=== PATIENT | male | born 1965 | race Caucasian/White ===

== ENCOUNTER 2024-02-17 11:28 | Emergency (ER) | payer OTHER, SELFPAY ==
[2024-02-17 11:35] VITALS: BP 184/110; PULSE 85; TEMP 36.6; O2SAT 97; BMI 31.0
--- NOTE | 2024-02-17 12:02 | ED.DENTAL1 ---
HPI - Dental/Oral General Chief complaint: Dental/Oral Stated complaint: TOOTHACHE Time Seen by Provider: 02/17/24 11:44 Source: patient Mode of arrival: walk-in History of Present Illness HPI Narrative: Patient is coming to the ER complaining of dental pain mostly the right lower, patient that he has been having dental issues for a while and has not been able to get into the dentist due to insurance problems, patient is denying any other complaint he mentioned that he has not been able to eat at least for few days because of the dental pain He has been drinking water and eating soft food Related Data Previous Rx's ?Medication ?Instructions ?Recorded clindamycin HCl 300 mg capsule 300 mg PO Q8H 10 days #30 caps 02/17/24 (Cleocin HCl) diclofenac sodium 75 mg 75 mg PO BID PRN pain #14 tabs 02/17/24 tablet,delayed release Allergies Allergy/AdvReac Type Severity Reaction Status Date / Time Penicillins AdvReac Severe Unknown Verified 02/17/24 11:38 Review of Systems ROS Status of ROS 10 or more systems reviewed and unremarkable except as noted in history and below PFSH PFSH Social History Little interest or pleasure in doing things: not at all Feeling down, depressed, or hopeless: not at all Exam Narrative Exam Narrative: Nurses notes and vital signs reviewed and patient is not hypoxic. Dental exam showed that the patient had multiple decayed tooth including the tooth #30 and 29 in addition to the tooth #19 and 20 there is some red gum with no airway compromise or any significant swelling General: Well-appearing and in no apparent distress. Skin: Warm, dry, no pallor noted. No rash. Head: Normocephalic, atraumatic. Neck: Supple, non-tender. Eye: Pupils are equal, round and EOMI. No scleral icterus. Ears, Nose, Mouth, and Throat: TM are clear, no nasal mucosal hypertrophy. Oral mucosa is moist, no posterior oropharynx erythema, uvula is mid-line Cardiovascular: Regular Rate and Rhythm without murmur, gallop or rub. Respiratory: No accessory muscle use or respiratory distress. Lungs are clear to auscultation, no wheezing, rales or rhonchi Chest Wall: no tenderness Back: No midline thoracic or lumbar vertebral tenderness. No CVA tenderness Musculoskeletal: normal ROM, no calf or popliteal tenderness, no lower extremity edema/swelling GI: Abdomen is soft, non-distended. Normal bowel sounds. No masses appreciated. No tenderness to palpation. No rebound, guarding, or rigidity noted. Neurological: A&O x4. No cranial nerve dysfunction observed. No truncal ataxia. Moves all extremities. Sensation intact. Psychiatric: Cooperative and interactive. Normal mood and affect. Constitutional Vital Signs, click to edit/add: Last Vital Signs Temp 97.9 F 02/17/24 11:35 Pulse 85 02/17/24 11:35 Resp 18 02/17/24 11:35 BP 184/110 H 02/17/24 11:35 Pulse Ox 97 02/17/24 11:35 Course Vital Signs Vital signs: Vital Signs Temperature 97.9 F 02/17/24 11:35 Pulse Rate 85 02/17/24 11:35 Respiratory Rate 18 02/17/24 11:35 Blood Pressure 184/110 H 02/17/24 11:35 Pulse Oximetry 97 02/17/24 11:35 Temperature 97.9 F 02/17/24 11:35 Pulse Rate 85 02/17/24 11:35 Respiratory Rate 18 02/17/24 11:35 Blood Pressure 184/110 H 02/17/24 11:35 Pulse Oximetry 97 02/17/24 11:35 MDM - Dental/Oral MDM Narrative Medical decision making narrative: The patient presented to us with a dental pain mostly secondary to dental infection he was started on clindamycin in addition supportive care with family Patient referred to the dentist as outpatient The patient is to follow up with primary care physician in next 2-3 days or to return to the emergency department should any of the signs or symptoms worsen or new symptoms develop. The patient agrees with the following Diagnosis and Treatment plan and the patient will be discharged home. Discharge Plan Discharge Chief Complaint: Dental/Oral Clinical Impression: Dental caries, Dental abscess Patient Disposition: Home, Self-Care Time of Disposition Decision: 12:05 Condition: Good Prescriptions / Home Meds: New clindamycin HCl [Cleocin HCl] 300 mg capsule 300 mg PO Q8H 10 Days Qty: 30 0RF diclofenac sodium 75 mg tablet,delayed release (DR/EC) 75 mg PO BID PRN (Reason: pain) Qty: 14 0RF Print Language: [place] Instructions: Dental Abscess (ED)
[2024-02-17] MEDS: BENZOCAINE 30 ML, lidocaine HCL 15 ML MM (12:14)
[2024-02-17] MEDS: CLINDAMYCIN HCL 150 MG CAPSULE 300 MG PO (12:14)
[2024-02-17] MEDS: KETOROLAC TROMETHAMINE 60 MG/2 ML VIAL IM (12:14)
== END 2024-02-17 12:23 | disposition home or self-care (01) ==
LOC: ER 12:55
PROVIDERS: Emergency Provider Emergency Medicine
DX: K02.9 Dental caries, unspecified (principal); K04.7 Periapical abscess without sinus
CPT/HCPCS: 96372; 99284; J1885

== ENCOUNTER 2024-02-17 21:21 | Emergency (ER) | payer OTHER, SELFPAY ==
[2024-02-17 21:27] VITALS: BP 175/109; PULSE 82; TEMP 37; O2SAT 97; BMI 31.0
--- OUTSIDE RECORDS SUMMARY | 2024-02-17 21:28 | XMS_ITS | CCD ---
Author Organization [facility] Care Team Providers Care Door Liner Name Role Phone TY CONLEY Attending Unavailable MISC, DOCTOR Primary Care Unavailable TY CONLEY Consulting Unavailable TY CONLEY Admitting Unavailable SARA BRIGHT Consulting Unavailable LEONOR MCNEIL Consulting Unavailable Steffany Flores MD Primary Care Provider URVASHI CLAYTON Referring Unavailable STEFFANY FLORES Primary Care Unavailable URVASHI CLAYTON Referring Unavailable STEFFANY FLORES Primary Care Unavailable RAMONITA VALLES Admitting Unavailable RAMONITA VALLES Attending Unavailable STEFFANY FLORES Primary Care Unavailable Allergies Allergy Classification Reported Allergen(s) Allergy Type Date of Onset Reaction(s) Facility (1 source) Penicillin Drug Allergy 1 [facility] (1 source) Penicillins Propensity to adverse reactions to drug 8 Other (See Comments) [facility] ([facility] source) Sulfonamides (Antibiotic) Propensity to adverse reactions to drug 8 Other (See Comments) [facility] Medications Current Medications Medication Drug Class(es) Dates Sig (Normalized) Sig (Original) calcium chloride 0.0014 meq/ml / potassium chloride 0.004 meq/ml / sodium chloride 0.103 meq/ml / sodium lactate 0.028 meq/ml injectable solution (2 sources) Start: 07-19-2023 lactated ringers IV soln infusion ibuprofen 800 mg oral tablet (1 source) Nonsteroidal Anti-inflammatory Drug Start: 07-05-2022 take 1 tablet by mouth three times daily ibuprofen (ADVIL;MOTRIN) 800 MG tablet Take 1 tablet by mouth 3 times daily 0 07/05/2022 Active Completed/Discontinued Medications Medication Drug Class(es) Dates Sig (Normalized) Sig (Original) naproxen 500 mg oral tablet (2 sources) Nonsteroidal Anti-inflammatory Drug Start: 01-22-2023 End: 04-24-2023 take 1 tablet by mouth once daily at mealtime naproxen (NAPROSYN) 500 MG tablet take 1 tablet by mouth every morning and evening with meals 0 01/22/2023 04/24/2023 Discontinued (Therapy completed) Start: 01-22-2023 End: 04-24-2023 take 1 tablet by mouth twice daily at mealtime naproxen (NAPROSYN) 500 MG tablet Take 1 tablet by mouth 2 times daily (with meals) 0 01/22/2023 04/24/2023 Discontinued (Therapy completed) traMADol hydrochloride 50 mg oral tablet (1 source) Opioid Agonist Start: 01-22-2023 End: 04-24-2023 take 1 tablet by mouth every six hours as needed for pain traMADol (ULTRAM) 50 MG tablet take 1 tablet by mouth every 6 hours NEEDED FOR PAIN up to 3 days 0 01/22/2023 04/24/2023 Discontinued (Therapy completed) Problems Active Problems Problem Classification Problem Date Documented Da te Episodic/Chronic Other non-traumatic joint disorders (4 sources) Pain in left knee; Translations: [PAIN IN LEFT KNEE] Onset: 06-14-2020 Episodic Other screening for suspected conditions (not mental disorders or infectious disease) (2 sources) Patient encounter status; Translations: [Encounter for screening for malignant neoplasm of colon] Onset: 07-19-2023 07-19-2023 Episodic Sprains and strains (1 source) Sprain of ligaments of lumbar spine, initial encounter; Translations: [SPRAIN LIGAMENTS LUMBAR SPN INITIAL] Onset: 06-16-2020 Episodic Past or Other Problems Problem Classification Problem Date Documented Da te Episodic/Chronic Gastrointestinal hemorrhage (2 sources) Rectal hemorrhage; Translations: [Hemorrhage of anus and rectum] Onset: 04-12-2023 07-19-2023 Episodic Other gastrointestinal disorders (1 source) Diarrhea, unspecified; Translations: [Diarrhea, unspecified] Onset: 04-13-2023 Episodic Results Test Name Value Interpretation Reference Range Facility No Panel Informationon 07-19 No dictation [facility] Surgical Pathology Reporton 07-19-2023 Surgical Pathology Report (NOTE) Path Number: [id number] -- Diagnosis -- A. Duodenum, biopsy: -Normal small bowel mucosa. B. Stomach, antral biopsy: -Mild chronic inflammation. C. Ascending colon, polyp, biopsy: -Tubular adenoma. D. Transverse colon, polyp, biopsy: -Tubular adenoma. E. Descending colon, polyp, biopsy: -Tubular adenoma. F. Rectum, polyp, biopsy: -Tubular adenoma. Estevan Quach M.D. Electronically Signed Out rdd/07/23/2023 Clinical Information Pre-Op Diagnosis: SCREENING FOR COLON CANCER, RECTAL BLEEDING Operative Findings: DUODENAL BULB BIOPSIES; GASTRIC ANTRUM BIOPSIES; ASCENDING COLON POLYP; TRANSVERSE COLON POLYP; DESCENDING COLON POLYP; RECTAL POLYP Operation Performed: COLONOSCOPY POLYPECTOMY SNARE/COLD BIOPSY AND CLIP X 3; EGD BIOPSY mj Source of Specimen A: DUODENAL BX B: ANTRAL BX C: ASCENDING COLON POLYP D: TRANSVERSE COLON POLYP E: DESCENDING COLON POLYP F: RECTAL POLYP Gross Description A. NICOLE WONG, DUODENAL BULB BIOPSIES Received in formalin is one rawls-white tissue fragment, 0.2 x 0.1 x 0.1 cm. Entirely 1cs. B. NICOLE WONG, GASTRIC ANTRUM BIOPSIES Received in formalin are two rawls-white tissue fragments from 0.1 to 0.2 cm and are 0.3 x 0.1 x 0.1 cm in aggregate. Entirely 1cs. C. NICOLE WONG, ASCENDING COLON POLYP Received in formalin are two rawls-white tissue fragments from 0.2 to 0.6 cm and are 0.8 x 0.5 x 0.2 cm in aggregate. Entirely 1cs. D. NICOLE WONG TRANSVERSE COLON POLYP Received in formalin is one rawls-white tissue fragment, 0.1 x 0.1 x 0.1 cm. Entirely 1cs. E. NICOLE WONG DESCENDING COLON POLYP Received in formalin are six rawls-white tissue fragments from 0.2 to 0.6 cm and are 0.9 x 0.5 x 0.2 cm in aggregate. Entirely 1cs. F. NICOLE WONG RECTAL POLYP Received in formalin are four rawls-white tissue fragments from 0.5 to 0.9 cm and are 1.7 x 0.8 x 0.4 cm in aggregate. Entirely 1cs. jj tm Estevan Quach M.D./mj:07/20/2023 Microscopic Description A. Small bowel mucosa shows normal architecture without active inflammation. There is no villous blunting or crypt hyperplasia to suggest sprue. Intraepithelial lymphocytes are not increased. There are no parasite forms. Lamina propria shows normal lymphocytes and plasma cells. There is no atypia or malignancy. B. Architecture is intact and there is no intestinal metaplasia and no dysplasia. There is no histologic evidence for Helicobacter. C-F. Microscopic examination performed. Processing Lab: [address] [id number] Interpretation Performed at [address] [id number] SURGICAL PATHOLOGY CONSULTATION Patient Name: NICOLE WONG [facility] Rec: [id number] [facility] ANATOMIC PATHOLOGY [address] [place] [id number] Normal [facility] Celiac Disease Panelon 04-19 Gliadin Deam Pep IgG <0.4 Normal <7.0 [facility] Comment on above: Result Comment: CELIAC INTERPRETATION <7.0 Negative 7.0-10.0 Equivocal >10.0 Positive units: U/mL Performed By: #### C ELP #### [address] [id number] Graphotype Operator: Emmanuel Wan MD Gliadin Deam Pep IgA 3.0 U/mL Normal <7.0 [facility] Comment on above: Result Comment: CELIAC INTERPRETATION <7.0 Negative 7.0-10.0 Equivocal >10.0 Positive units: U/mL Performed By: #### C ELP #### [address] [id number] Graphotype Operator: Emmanuel Wan MD Tiss Transglutam IgA 1.0 U/mL Normal <7.0 [facility] Comment on above: Result Comment: CELIAC INTERPRETATION <7.0 Negative 7.0-10.0 Equivocal >10.0 Positive units: U/mL Performed By: #### C ELP #### [address] [id number] Graphotype Operator: Emmanuel Wan MD Calprotectin, Fecalon 2022 Calprotectin, Fecal <5 Normal <=49 [facility] Comment on above: Result Comment: (NOT E) REFERENCE INTERVAL: Calprotectin, Fecal by Immunoassay Less than 50 ug/g.........Normal 50-120 ug/g...............Borderline elevated, test should be re-evaluated in 4-6 weeks. 121 ug/g or greater.......Elevated Performed By: [facility] [address] [id number] Physician Practice Manager: Nima Lemus MD, PhD CLIA Number: [id number] Performed By: #### S TLPCR, GCAG #### [facility] [address] [place] [address] Graphotype Operator: Emmanuel Wan MD [facility] [address] [facility] [place] [address] Graphotype Operator: Inderjit Panda MD #### ACALPF #### [address] [address] Graphotype Operator: Jacinto Szymanski MD Fecal Panc Elastaseon 2022 Pancreatic Elastase >800 Normal >=100 [facility] Comment on above: Result Comment: (NOT E) REFERENCE INTERVAL: Pancreatic Elastase Fecal by Immunoassay Less than 100 ug/g............Severe insufficiency 100 - 199 ug/g................Moderate insufficiency 200 ug/g or greater...........Normal INTERPRETIVE INFORMATION: Pancreatic Elastase Fecal by Immunoassay Reference intervals do not apply for infants less than one month old. Performed By: [facility] [address] [place] [address] Physician Practice Manager: Nima Lemus MD, PhD CLIA Number: [id number] Performed By: #### A PEF #### [facility] [address] [place] [address] Graphotype Operator: Jacinto Szymanski MD Giardia/Cryptosp Agon 2022 Cryptosporidium Ag Negative Normal NEG [facility] Comment on above: Result Comment: Cryp tosporidium Antigen Assay Performed By: #### S TLPCR, GCAG #### [facility] [address] [place] [address] Graphotype Operator: Emmanuel Wan MD [facility] [address] [place] [address] [address] [place], [place] [id number] Graphotype Operator: Inderjit Panda MD #### ACALPF #### [facility] [address] [place] [address] Graphotype Operator: Jacinto Szymanski MD O+P,Giardia Ag Negative Normal NEG [facility] Comment on above: Result Comment: Giar roly Antigen Assay Performed By: #### S TLPCR, GCAG #### [facility] [place] [address] Graphotype Operator: Emmanuel Wan MD [address] [place] [id number] Graphotype Operator: Inderjit Panda MD #### ACALPF #### [facility] [address] [place] [address] Graphotype Operator: Jacinto Szymanski MD Stool PCR [facility] 04-14-20 Campylobacter sp PCR NEGATIVE: No Campylobacter spp. (jejuni or coli) DNA Detected Normal CAMNEG [facility] Comment on above: Performed By: #### S TLPCR, GCAG #### [facility] [address] [place] [address] Graphotype Operator: Emmanuel Wan MD [facility] [address] [place] [address] [address] [place], [place] [id number] Graphotype Operator: Inderjit Panda MD #### ACALPF #### [facility] [address] [place] [address] Graphotype Operator: Jacinto Szymanski MD E coli enterotox PCR NEGATIVE: No Enterotoxigenic E. coli (ETEC) Heat-labile and heat-stable (LT/ST) Normal EECNEG [facility] Comment on above: Result Comment: DNA Detected Performed By: #### S TLPCR, GCAG #### [address] [address] Graphotype Operator: Emmanuel Wan MD [facility] [address] [place] [address] [place] [address] Graphotype Operator: Inderjit Panda MD #### ACALPF #### [facility] [address] [place] [address] Graphotype Operator: Jacinto Szymanski MD Plesiomonas sp PCR Negative [facility] Comment on above: Performed By: #### S TLPCR, GCAG #### [address] [address] Graphotype Operator: Emmanuel Wan MD [facility] [address] [place] [address] [place], [place] [id number] Graphotype Operator: Inderjit Panda MD #### ACALPF #### [facility] [address] [place] [address] Graphotype Operator: Jacinto Szymanski MD Salmonella sp PCR Negative [facility] Comment on above: Performed By: #### S TLPCR, GCAG #### [address] [address] Graphotype Operator: Emmanuel Wan MD [facility] [address] [place] [address] [place] [address] Graphotype Operator: Inderjit Panda MD #### ACALPF #### [facility] [address] [place] [address] Graphotype Operator: Jacinto Szymanski MD Shigatoxin gene PCR Negative Normal [facility] Comment on above: Performed By: #### S TLPCR, GCAG #### [address] [address] Graphotype Operator: Emmanuel Wan MD [facility] [address] [place] [address] [address] [place], [place] [id number] Graphotype Operator: Inderjit Panda MD #### ACALPF #### [facility] [address] [place] [address] Graphotype Operator: Jacinto Szymanski MD Shigella sp PCR Negative Normal [facility] Comment on above: Performed By: #### S TLPCR, GCAG #### [address] [address] Graphotype Operator: Emmanuel Wan MD [facility] [address] [place] [address] [address]. [place], [place] [id number] Graphotype Operator: Inderjit Panda MD #### ACALPF #### [facility] [address] [place], [place] [id number] Graphotype Operator: Jacinto Szymanski MD Vibrio sp PCR NEGATIVE: No Vibrio (V. vulnificus, V, parahaemolyticus and V. cholerae) DNA Normal [facility] Comment on above: Result Comment: Dete cted Performed By: #### S TLPCR, GCAG #### [address] [address] Graphotype Operator: Emmanuel Wan MD [facility] [address] [place] [address] Dr. [place], [place] [id number] Graphotype Operator: Inderjit Panda MD #### ACALPF #### [facility] [address] [place], [place] [id number] Graphotype Operator: Jacinto Szymanski MD Yersinia gene PCR Negative Normal YERNEG [facility] Comment on above: Performed By: #### S TLPCR, GCAG #### [facility] [address] [place] [address] Graphotype Operator: Emmanuel Wan MD [facility] [address] [place] [address] [address]. [place], [place] [id number] Graphotype Operator: Inderjit Panda MD #### ACALPF #### [facility] [address] [place] [address] Graphotype Operator: Jacinto Szymanski MD Celiac Disease Panelon 04-13 IgA [Mass/Vol] 386 mg/dL Normal 70-400 [facility] Comment on above: Performed By: #### C ELP #### [facility] [address] [place], [place] [id number] Graphotype Operator: Emmanuel Wan MD Giardia/Cryptosp Agon 2022 Source .FECES [facility] Comment on above: Performed By: #### S TLPCR, GCAG #### [facility] [address] [place] [address] Graphotype Operator: Emmanuel Wan MD [facility] [address] [place] [address] Graphotype Operator: Inderjit Panda MD #### ACALPF #### [facility] [address] [place] [address] Graphotype Operator: Jacinto Szymanski MD Specimen Rejectionon 023 Reason for rejection Unable to perform testing: Formed stool is not consistent with suspected Normal [facility] Comment on above: Result Comment: diag nosis. Performed By: #### R EJEC #### [facility] [address] [place] [address] Graphotype Operator: Inderjit Panda MD Source of sample .FECES Normal [facility] Comment on above: Performed By: #### R EJEC #### [facility] [address] [place] [address] Graphotype Operator: Inderjit Panda MD Test ordered [id number] [facility] Comment on above: Performed By: #### R EJEC #### [facility] [address] [place] [address] Graphotype Operator: Inderjit Panda MD Stool PCR [facility] 04-13-20 23 Specimen Description .FECES Normal [facility] Comment on above: Performed By: #### S TLPCR, GCAG #### [facility] [address] [place] [address] Graphotype Operator: Emmanuel Wan MD [facility] [address] [place], [place] [id number] Graphotype Operator: Inderjit Panda MD #### ACALPF #### [facility] [address] [place] [address] Graphotype Operator: Jacinto Szymanski MD CBC with Diffon 04-12-2023 Abs. Basophil 0.07 k/uL Normal 0.00-0.20 [facility] Comment on above: Performed By: #### C DP #### [facility] [address] [place], [place] [id number] Graphotype Operator: Inderjit Panda MD Abs.Imm.Granulocyte 0.07 k/uL Normal 0.00-0.30 [facility] Comment on above: Performed By: #### C DP #### [facility] [address] [place] [address] Graphotype Operator: Inderjit Panda MD Abs.Neutrophil (Seg) 5.21 k/uL Normal 1.50-8.10 [facility] Comment on above: Performed By: #### C DP #### [facility] [address] [place] [address] Graphotype Operator: Inderjit Panda MD Basophils/100 WBC (Bld) 1 % Normal 0-2 [facility] Comment on above: Performed By: #### C DP #### [facility] [address] [place], [place] [id number] Graphotype Operator: Inderjit Panda MD Eosinophils (Bld) [#/Vol] 0.07 10*3/uL Normal 0.00-0.44 [facility] Comment on above: Performed By: #### C DP #### [facility] [address] [place] [address] Dr. [place], [place] [id number] Graphotype Operator: Inderjit Panda MD Eosinophils/100 WBC (Bld) 1 % Normal 1-4 [facility] Comment on above: Performed By: #### C DP #### [facility] [address] [place] [address] Dr. [place], [facility]83 Graphotype Operator: Inderjit Panda MD Erythrocyte distribution width (RBC) [Ratio] 13.2 % Normal 11.8-14.4 [facility] Comment on above: Performed By: #### C DP #### [address] [place], [facility]83 Graphotype Operator: Inderjit Panda MD Hematocrit (Bld) [Volume fraction] 48.9 % Normal 40.7-50.3 [facility] Comment on above: Performed By: #### C DP #### [address] [place], [facility]83 Graphotype Operator: Inderjit Panda MD Hemoglobin (Bld) [Mass/Vol] 16.4 g/dL Normal 13.0-17.0 [facility] Comment on above: Performed By: #### C DP #### [address] [place], [facility]83 Graphotype Operator: Inderjit Panda MD Immature granulocytes/100 WBC (Bld) 1 % High 0 [facility] Comment on above: Performed By: #### C DP #### [facility] [address] [place] [address] Dr. [place], [facility]83 Graphotype Operator: Inderjit Panda MD Lymphocytes (Bld) [#/Vol] 3.68 10*3/uL Normal 1.10-3.70 [facility] Comment on above: Performed By: #### C DP #### [address] [place], [facility]83 Graphotype Operator: Inderjit Panda MD Lymphocytes/100 WBC (Bld) 38 % Normal 24-43 [facility] Comment on above: Performed By: #### C DP #### [facility] [address] [place] [id number] Graphotype Operator: Inderjit Panda MD MCH (RBC) [Entitic mass] 31.0 pg Normal 25.2-33.5 [facility] Comment on above: Performed By: #### C DP #### [facility] [address] [place], [place] [address] Graphotype Operator: Inderjit Panda MD MCHC (RBC) [Mass/Vol] 33.5 g/dL Normal 28.4-34.8 [facility] Comment on above: Performed By: #### C DP #### [address] [place] [id number] Graphotype Operator: Inderjit Panda MD MCV (RBC) [Entitic vol] 92.4 fL Normal 82.6-102.9 [facility] Comment on above: Performed By: #### C DP #### [address] [place], [facility]83 Graphotype Operator: Inderjit Panda MD Monocytes (Bld) [#/Vol] 0.58 10*3/uL Normal 0.10-1.20 [facility] Comment on above: Performed By: #### C DP #### [facility] [address] [place] [address] Dr. [place], [facility]83 Graphotype Operator: Inderjit Panda MD Monocytes/100 WBC (Bld) 6 % Normal 3-12 [facility] Comment on above: Performed By: #### C DP #### [facility] [address] [place], [facility]83 Graphotype Operator: Inderjit Panda MD Neutrophil (Seg) 53 % Normal 36-65 [facility] Comment on above: Performed By: #### C DP #### [facility] [address] [place], [place] [id number] Graphotype Operator: Inderjit Panda MD NRBC Automated 0.0 per 100 WBC Normal 0.0 [facility] Comment on above: Performed By: #### C DP #### [facility] [address] [place], [place] [id number] Graphotype Operator: Inderjit Panda MD Platelet mean volume (Bld) [Entitic vol] 10.2 fL Normal 8.1-13.5 [facility] Comment on above: Performed By: #### C DP #### [address] [place], [place] [id number] Graphotype Operator: Inderjit Panda MD Platelets (Bld) [#/Vol] 266 10*3/uL Normal 138-453 [facility] Comment on above: Performed By: #### C DP #### [address] [place], [place] [phone] Graphotype Operator: Inderjit Panda MD RBC (Bld) [#/Vol] 5.29 10*6/uL Normal 4.21-5.77 [facility] Comment on above: Performed By: #### C DP #### [address] [place], [place] [id number] Graphotype Operator: Inderjit Panda MD WBC (Bld) [#/Vol] 9.7 10*3/uL Normal 3.5-11.3 [facility] Comment on above: Performed By: #### C DP #### [address] [place], [place] [id number] Graphotype Operator: Inderjit Panda MD XR HIP LT 2 3V WO PELVISon 0 06-14-2020 XR HIP LT 2 3V WO PELVIS PROCEDURE: XR HIP LT 2 3V WO PELVIS HISTORY: Bone injury ; acute left hip pain for one month COMPARISON: None. FINDINGS: BONES:No fracture, acute abnormality, or significant arthropathy. SOFT TISSUES:No visible soft tissue swelling. EFFUSION:None visible. OTHER: Negative. IMPRESSION: No acute bone abnormality, lesion, or significant degenerative changes. Electronically authenticated by: SARA BRIGHT Date: 2020-06-14 13:43 Normal [facility] XR KNEE LT 4V or >on 021 XR KNEE LT 4V or > EXAM: XR KNEE LT 4V or > HISTORY: Bone injury COMPARISON: None. TECHNIQUE: 4 views. FINDINGS: Postsurgical changes. No acute fracture or dislocation. Probable healed fracture at the proximal tibia. Probable remote trauma at the anterior tibial tuberosity. Degenerative disease noted. No large left knee joint effusion is seen. IMPRESSION: Cortical lucency at the lateral tibial plateau likely represents overlying skinfold in the absence of joint effusion. This can be correlated clinically to exclude fracture. No acute fracture is otherwise seen as described above. If there is persistent clinical concern for underlying acute osseous abnormality, recommend repeat exam in 7-10 days. If there is concern for internal derangement, recommend dedicated cross-sectional imaging study for further evaluation. Electronically authenticated by: LEONOR TARUN Date: 2020-06-14 14:02 Normal [facility] Vital Signs Date Time Vital Sign Value Performing Clinician Haoi yung 07-19-2023 14:45-0500 Diastolic blood pressure 82 mm[Hg] Ramonita Valles MD Work Phone: [facility] 07-19-2023 14:45-0500 Heart rate 77 /min Ramonita Valles MD Work Phone: [facility] 07-19-2023 14:45-0500 Respiratory rate 16 /min Ramonita Valles MD Work Phone: [facility] 07-19-2023 14:45-0500 SaO2% (BldA) [Mass fraction] 94 % Ramonita Valles MD Work Phone: [facility] 07-19-2023 14:45-0500 Systolic blood pressure 113 mm[Hg] Ramonita Valles MD Work Phone: [facility] [employer] [facility] 07-19-2023 14:22-0500 Body temperature 99.3 [degF] Ramonita Valles MD Work Phone: [facility] 07-19-2023 13:00-0500 Body height 175.3 cm Ramonita Valles MD Work Phone: [facility] 07-19-2023 13:00-0500 Body mass index (BMI) [Ratio] 31.6 kg/m2 Ramonita Valles MD Work Phone: [facility] 07-19-2023 13:00-0500 Body weight 97.07 kg Ramonita Valles MD Work Phone: [facility] Encounters Encounter Date Encounter Type Care Provider Facility Start: 07-19-2023 End: 07-19-2023 ambulatory RAMONITA N [facility] Start: 07-19-2023 End: 07-19-2023 Subsequent hospital visit by physician Ramonita Valles MD Work Phone: [facility] Comment on above: Screening for colon cancer; Rectal bleeding Start: 04-13-2023 End: 04-14-2023 ambulatory URVASHI CLAYTON [facility] l Start: 04-12-2023 End: 04-13-2023 ambulatory URVASHIBRUNO CLAYTON [facility] l Start: 06-14-2020 End: 06-14-2020 Patient encounter procedure TY CONLEY Facility: Procedures Date Procedure Procedure Detail Performing Clinician Start: 07-19-2023 Esophagogastroduodenoscopy Ramonita Valles MD Work Phone: Start: 07-19-2023 End: 07-19-2023 Colonoscopy Ramonita Valles MD Work Phone: Plan of Treatment Date Care Activity Detail Author Start: 07-19-2033 Screening for malignant neoplasm of colon [facility] Start: 07-19-2023 End: 07-19-2023 Colon ca scrn not hi rsk ind COLORECTAL CANCER SCREENI NG, NOT HIGH RISK Screening for colon cancer Rectal bleeding 07/19/2023 1:24 PM [facility] Start: 07-19-2023 End: 07-19-2023 Esophagogastroduodenoscopy transoral diagnostic EGD ESOPHAGOGASTRODUODENOSCOPY Screening for colon cancer Rectal bleeding 07/19/2023 1:24 PM [facility] Start: 01-09-2023 Influenza vaccination Flu vaccine (#1) [facility] Start: 2016 Shingles vaccine (1 of 2) Shingles vaccine (1 of 2) [facility] Start: 01-01-2012 Screening for malignant neoplasm of colon [facility] Start: 2006 Lipid panel Lipids [facility] Start: 2001 Diabetes screen Diabetes screen [facility] Start: 1985 DTaP/Tdap/Td vaccine (1 - Tdap) DTaP/Tdap/Td vaccine ( 1 - Tdap) [facility] Start: 1984 Hepatitis C screening Hepatitis C screen [facility] Start: 1981 HIV screening HIV screen [facility] Start: 1978 Depression Screen Depression Screen [facility] Start: 07-03-1967 COVID-19 Vaccine (#1) COVID-19 Vaccine (#1) [facility] Start: 1966 Hepatitis B vaccine (1 of 3 - 3-dose series) Hepatitis B vaccine (1 of 3 - 3-dose series) [facility] Surgical Pathology Surgical Path ology Lab Routine Screening for colon cancer Rectal bleeding Release Upon Ordering for 1 Occurrences starting 07/19/2023 [facility] Comment on above: Release Upon Ordering for 1 Occurrences starting 07/19/2023 Payers Date Payer Category Payer Unknown [id number] [id number] [id number] 1966 Unknown [id number] [id number] [id number] 1966 Unknown [id number] 1966 Unknown [id number] [id number] 1966 Unknown [id number] [id number] 1959 Unknown [id number] Social History Date Type Detail Facility Start: [facility]12-2023 [facility] Start: 07-19-2023 Alcohol intake Current drinke r of alcohol (finding) [facility] [employer] Start: 09-28-2012 End: 07-19-2023 Alcohol intake [facility] [employer] Start: 09-28-2012 [facility] Start: 07-19-2023 Alcohol Comment occasional [facility] [employer] Start: 1965 Sex Assigned At Not on file B ON [facility] Medical Equipment Procedure Code Equipment Code Equipment Origin al Text Equipment Identifier Dates Clip Endoscp 235 cm Resol 360 Order Uom Is Each - [id number] Start: 07-19-2023 Hospital Discharge instructions 07-19-2023 Discharge Instructions Note Date & Type Note Facility 07-19-2023 Hospital Discharg e instructions Dora Sultana RN - 07/19/2023 1:47 PM EST SAME DAY SURGERY DISCHARGE INSTRUCTIONS 1. Do not drive or operate hazardous machinery for 24 hours. 2. Do not make important personal or business decisions for 24 hours. 3. Do not drink alcoholic beverages for 24 hours. 4. Do not smoke tobacco products for 24 hours. 5. Eat light foods (Jell-O, soups, etc....) and drink plenty of fluids (water, Sprite, etc...) up to 8 glasses per day, as you can tolerate. 6. Limit your activities for 24 hours. Do not engage in heavy work until your surgeon gives you permission. 7. Call your surgeon for any questions regarding your surgery. 8. Patient should not be left alone for 12-24 hours following surgical procedure. COLONOSCOPY DISCHARGE INSTRUCTIONS: It's normal to have a feeling of fullness or mild cramping in your abdomen afterwards due to air that is put into your bowel during the procedure. Mild activities such as walking will help you pass the air. You may resume your regular diet. ENDOSCOPY DISCHARGE INSTRUCTIONS: You may have a mild sore throat; this should get better over the next day or two. Sipping warm liquids, a salt-water gargle or throat lozenges may be used. You may have some belching or a feeling of fullness in your abdomen. This is from air that was put into your stomach during the procedure. This should pass in a few hours. May resume your regular diet. You will receive a letter or phone call with your test results in 2 weeks. If you have not received a letter or a phone call in 2 weeks please call the office for your results. CALL THE DOCTOR IF YOU HAVE: Chest pain or trouble breathing. A hoarse voice or trouble swallowing Bleeding, vomiting or spitting up of blood that is more than a few streaks or red or black stools A fever above 101F or if you have chills Pain that is worse or different than any pain you had before the procedure Nausea or vomiting that lasts for more than 2 hours. RECOMMENDATIONS: 1) Avoid NSAIDs.30 days. These include medications like ibuprofen, Aleve, Motrin, Naprosyn, aspirin 325 mg. Alternative is acetaminophen no more than 2400 mg daily. If symptoms are to severe call 911 or go to the nearest Emergency Room. Clips were placed in your colon as part of the polyp removal process; these clips are metal and can interfere with MRI procedures; the clips will pass as part of a bowel movement after several weeks until that time you have been given an implant card stating when and where the clips are located; please present the card to radiology prior to having any MRI procedures. documented in this encounter [facility] History of Present illness Narrative 07-06-2023 Theresa Montes RN - 07/06/2023 2:17 PM Theresa Cox RN - 04/24/2023 8:04 AM EST Note Date & Type Note Facility 07-06-2023 History of Presen t illness Narrative Patient states they received their colon prep instructions and home medications that are to be taken on the day of their procedure with a small sip of water only, from the physician's office. Patient states they received their colon prep instructions and home medications that are to be taken on the day of their procedure with a small sip of water only, from the physician's office. documented in this encounter [facility] Evaluation note Note Date & Type Note Facility Evaluation note Diagnosis Screening for colon cancer Special screening for malignant neoplasms, colon Rectal bleeding Hemorrhage of rectum and anus documented in this encounter [facility] Summary Purpose Family History No Family History Records FoundNo Family History Records Found Advance Directives No Advanced Directives Records FoundNo Advanced Directives Records Found Additional Source Comments (unrecognized sect ion and content) No Status Records FoundNo Status Records Found INFORMATION SOURCE (unrecogn ized section and content) DATE CREATED AUTHOR 06/16/2020 [facility] DATE CREATED AUTHOR AUTHOR'S ORGANIZ ATION 07/24/2023 [facility] Reason for Visit (unrecogniz ed section and content) Specialty Diagnoses / Procedures Referred By Yannick angela Referred To Contact Diagnoses Screening for colon cancer Rectal bleeding Screening for colon cancer [Z12.11] Rectal bleeding [K62.5] Procedures AR COLON CA SCRN NOT HI RSK IND AR ESOPHAGOGASTRODUODENOSCOPY TRANSORAL DIAGNOSTIC AR EGD TRANSORAL BIOPSY SINGLE/MULTIPLE AR EGD BALLOON DILATION ESOPHAGUS <30 MM DIAM AR COLONOSCOPY FLX DX W/COLLJ SPEC WHEN PFRMD AR COLONOSCOPY W/BIOPSY SINGLE/MULTIPLE AR COLSC FLX W/RMVL OF TUMOR POLYP LESION SNARE TQ COLORECTAL CANCER SCREENING, NOT HIGH RISK EGD ESOPHAGOGASTRODUODENOSCOPY Ramonita Valles MD [address] [place] [id number] [facility] [address] [place] [address] Referral ID Status Reason Start Date Expiration Date Visits Re quested Visits Authorized [id number] 1 1 Continuous Active and Recently Administ ered Medications (unrecognized section and content) Medication Order 07/17/2023 07/18/2023 07/19/2023 lactated ringers IV soln infusion IntraVENous, at 100 mL/hr, CONTINUOUS, Starting on Mayela 07/19/23 at 1315, Pre-op (day of surgery) 1315 (Canceled Entry - Provider: Dayanna Lockett RN) lactated ringers IV soln infusion IntraVENous, at 100 mL/hr, CONTINUOUS, Starting on Mayela 24 at 1315, Pre-op (day of surgery) 1315 (New Bag - Prov ider: Dayanna Lockett RN)1323 (Paused - Provider: YUKI Boudreaux CRNA - Comment: Switch to gravity)1324 (Restarted - Provider: YUKI Boudreaux CRNA) Care Teams (unrecognized sec tion and content) Door Liner Relationship Specialty Start Date End Date Steffany Flores MD [address] [place] [address] PCP - General Family Medicine 04/12/23 FOR RECORDS PERTAINING TO PATIENTS WHO ARE OR HAVE BEEN ENROLLED IN A CHEMICAL DEPENDENCY/SUBSTANCEABUSE PROGRAM, SOME INFORMATION MAY BE OMITTED. This clinical summary was aggregated from multiple sources. Caution should be exercised in using it in the provision of clinical care. This summary normalizes information from multiple sources, and as a consequence, information in this document may materially change the coding, format and clinical context of patient data. In addition, data may be omitted in some cases. CLINICAL DECISIONS SHOULD BE BASED ON THE PRIMARY CLINICAL RECORDS. [facility] [facility]. provides no warranty or guarantee of the accuracy or completeness of information in this document.
--- NOTE | 2024-02-17 21:37 | ED.DENTAL1 ---
HPI - Dental/Oral General Chief complaint: Dental/Oral Stated complaint: Dental Pain, Nausea/Vomiting Time Seen by Provider: 02/17/24 21:26 Source: patient Mode of arrival: walk-in Limitations: no limitations History of Present Illness HPI Narrative: This 58-year-old male who is seen earlier today for dental pain and prescribed diclofenac and clindamycin presents for evaluation of ongoing dental pain and nausea with vomiting. The patient states that he felt better after being treated here earlier today and around 5:30 PM his pain started to return so he took an additional dose of his antibiotics and pain medication and tried to lay down but he woke up with nausea vomiting and increased pain. He has severe periodontal disease. He was referred to [facility] dental clinic earlier today. He states he has had gum disease for many years and cannot find a dentist that will treat him without it causing him $1 million. He denies any neal abdominal pain. He still feels mildly nauseated and is shaking on the stretcher. He has not had a fever. He has no difficulties tolerating his secretions. Related Data Previous Rx's ?Medication ?Instructions ?Recorded clindamycin HCl 300 mg capsule 300 mg PO Q8H 10 days #30 caps 02/17/24 (Cleocin HCl) diclofenac sodium 75 mg 75 mg PO BID PRN pain #14 tabs 02/17/24 tablet,delayed release Allergies Allergy/AdvReac Type Severity Reaction Status Date / Time Penicillins AdvReac Severe Unknown Verified 02/17/24 21:30 Review of Systems ROS Status of ROS 10 or more systems reviewed and unremarkable except as noted in history and below PFSH PFSH Social History Little interest or pleasure in doing things: not at all Feeling down, depressed, or hopeless: not at all Exam Narrative Exam Narrative: Vital signs and Nursing Notes reviewed: Patient is afebrile with a normal pulse, blood pressure is elevated at 175/109, he is not hypoxic with pulse ox of 97% on room air General: Nontoxic but uncomfortable appearing male, he is holding the right side of his jaw and rocking back and forth on the stretcher, no respiratory distress, no active vomiting HEENT: Normocephalic atraumatic, mucous membranes are moist and pink, there are multiple missing teeth, there is gingival erythema and edema surrounding the right lower teeth #2829 and 30 with moderate dental decay in this area. There is no visible periapical abscess. There is no necrotizing gingivitis. There is not swelling of the tongue, uvula or pharyngeal soft tissues. I do not appreciate any jaw tenderness or abscess. There is no adjacent facial redness induration or swelling. There is no pooling of secretions. Speech is normal. Neck: Supple, no meningeal signs, no anterior or posterior cervical lymphadenopathy Chest: Lungs are clear to auscultation with good air entry, there is no wheezing rhonchi or rales appreciated no accessory muscle use, patient is speaking in complete sentences-no chest wall tenderness to palpation CVS: Regular rate and rhythm S1-S2, no murmurs rubs or gallops, pulses are brisk and equal bilaterally ABD: Soft, nondistended, nontender, no rebound guarding or rigidity, bowel sounds are normal, no pulsatile masses appreciated Extremities: Moving all extremities, no lower extremity tenderness or swelling noted, negative Homans' sign, pulses are brisk and equal bilaterally Skin: Normal in appearance without rash,pallor, petechiae or purpura Neuro: No focal deficits Constitutional Vital Signs, click to edit/add: Last Vital Signs Temp 98.6 F 02/17/24 21:27 Pulse 82 02/17/24 21:27 Resp 16 02/17/24 21:27 BP 175/109 H 02/17/24 21:27 Pulse Ox 97 02/17/24 21:27 O2 Del Method Room Air 02/17/24 21:27 Course Vital Signs Vital signs: Vital Signs Temperature 98.6 F 02/17/24 21:27 Pulse Rate 82 02/17/24 21:27 Respiratory Rate 16 02/17/24 21:27 Blood Pressure 175/109 H 02/17/24 21:27 Pulse Oximetry 97 02/17/24 21:27 Oxygen Delivery Method Room Air 02/17/24 21:27 Temperature 98.6 F 02/17/24 21:27 Pulse Rate 82 02/17/24 21:27 Respiratory Rate 16 02/17/24 21:27 Blood Pressure 175/109 H 02/17/24 21:27 Pulse Oximetry 97 02/17/24 21:27 Oxygen Delivery Method Room Air 02/17/24 21:27 MDM - Dental/Oral MDM Narrative Medical decision making narrative: This 58-year-old male presents for evaluation of nausea vomiting and recurrent dental pain after being treated earlier today for a dental infection with clindamycin and diclofenac. He states he was feeling better when he left here and after the pain medication started wearing off his pain returned and he took an additional dose of pain medicine and antibiotic and shortly thereafter became nauseated with vomiting and recurrence of his pain. He has not had a fever. He has multiple decayed and decaying teeth with periodontal disease as a history. He has been referred to outpatient dentistry. In the emergency department he was medicated with IM Toradol and IM Zofran. He is driving so the narcotic analgesics were withheld. I did review his OARRS report. He has recently had a prescription for tramadol but has otherwise not had any narcotic medications. He will be discharged home with Zofran and Cruger to use over the course of the next several days until he can be seen by a dentist. He was encouraged to finish all antibiotics. Prior to discharge he was given a p.o. trial and was able to tolerate water without recurrent nausea or vomiting. He is driving. I encouraged him not to take the Cruger that was dispensed to him before he gets home. He is in agreement with this plan. Discharge Plan Discharge Chief Complaint: Dental/Oral Clinical Impression: Toothache, Chronic periodontal disease, Medication adverse effect Patient Disposition: Home, Self-Care Time of Disposition Decision: 22:33 Condition: Good Prescriptions / Home Meds: No Action clindamycin HCl [Cleocin HCl] 300 mg capsule 300 mg PO Q8H 10 Days Qty: 30 0RF diclofenac sodium 75 mg tablet,delayed release (DR/EC) 75 mg PO BID PRN (Reason: pain) Qty: 14 0RF Print Language: Colombian Referrals: [facility] [Primary Care Provider] - 1 week
[2024-02-17] MEDS: ONDANSETRON PF 4 MG/2 ML VIAL IM (21:50)
[2024-02-17] MEDS: KETOROLAC TROMETHAMINE 60 MG/2 ML VIAL IM (21:52)
[2024-02-17] MEDS: HYDROCODONE/ACET 5-325 MG TABLET 2 TAB PO (22:50)
[2024-02-17] MEDS: ONDANSETRON 4 MG RAPDIS TABLET SL (22:50)
== END 2024-02-17 22:54 | disposition home or self-care (01) ==
PROVIDERS: Emergency Provider Emergency Medicine
DX: K02.9 Dental caries, unspecified (principal); K04.7 Periapical abscess without sinus; K08.89 Other specified disorders of teeth and supporting structures; K05.6 Periodontal disease, unspecified; R11.2 Nausea with vomiting, unspecified; T50.905A Adverse effect of unspecified drugs, medicaments and biological substances, initial encounter
CPT/HCPCS: 96372; 99284; J1885; J2405; Q0162

== ENCOUNTER 2024-02-24 20:11 | Emergency (ER) | payer OTHER, SELFPAY ==
[2024-02-24 20:14] VITALS: BP 148/98; PULSE 75; TEMP 36.9; O2SAT 97; BMI 28.5
--- OUTSIDE RECORDS SUMMARY | 2024-02-24 20:18 | XMS_ITS | CCD ---
Author Organization [facility] Care Team Providers Care Tearoom Host Name Role Phone TY CONLEY Attending Unavailable [...] (1 source) Penicillin Drug Allergy 1 [facility] (1 source) Penicillins Propensity to adverse reactions to drug 8 Other (See Comments) [facility] (1 source) Sulfonamides (Antibiotic) Propensity to adverse reactions to drug 8 Other (See Comments) [facility] Medications Current Medications Medication Drug Class(es) Dates [...] Facility No Panel Informationon 07-19 No dictation [facility] Surgical Pathology Reporton 07-19-2023 Surgical Pathology Report (NOTE) Path Number: [id number] -- Diagnosis -- A. Duodenum, biopsy: -Normal [...] Helicobacter. C-F. Microscopic examination performed. Processing Lab: [address] [address] Interpretation Performed at [address] [address] SURGICAL PATHOLOGY CONSULTATION Patient Name: [facility] Rec: [id number] [facility] ANATOMIC PATHOLOGY [address] [place] [id number] Normal [facility] Celiac Disease Panelon 04-19 Gliadin Deam Pep IgG <0.4 Normal <7.0 [facility] Comment on above: Result Comment: CELIAC INTERPRETATION <7.0 Negative 7.0-10.0 Equivocal >10.0 Positive units: U/mL Performed By: #### C ELP #### [address] [id number] [employer] Production Supervisor: Emmanuel Wan MD Gliadin Deam Pep IgA 3.0 U/mL Normal <7.0 [facility] Comment on above: Result Comment: CELIAC INTERPRETATION <7.0 Negative 7.0-10.0 Equivocal >10.0 Positive units: U/mL Performed By: #### C ELP #### [address] [id number] [employer] Production Supervisor: Emmanuel Wan MD Tiss Transglutam IgA 1.0 U/mL Normal <7.0 [facility] Comment on above: Result Comment: CELIAC INTERPRETATION <7.0 Negative 7.0-10.0 Equivocal >10.0 Positive units: U/mL Performed By: #### C ELP #### [address] [id number] [employer] Production Supervisor: Emmanuel Wan MD Calprotectin, Fecalon 2022 Calprotectin, Fecal <5 Normal <=49 [facility] Comment on above: Result Comment: (NOT E) REFERENCE INTERVAL: Calprotectin, Fecal by Immunoassay Less than 50 ug/g.........Normal 50-120 ug/g...............Borderline elevated, test should be re-evaluated in 4-6 weeks. 121 ug/g or greater.......Elevated Performed By: [facility] [address] [id number] Idea Man: Nima Lemus MD, PhD CLIA Number: [id number] Performed By: #### S TLPCR, GCAG #### [facility] [address] [place] [address] Electronics Production Supervisor: Emmanuel Wan MD [facility] [address] [place] [address] Electronics Production Supervisor: Inderjit Panda MD #### ACALPF #### [address] [address] [employer] Production Supervisor: Jacinto Szymanski MD Fecal Panc Elastaseon 2022 Pancreatic Elastase >800 Normal >=100 [facility] Comment on above: Result Comment: (NOT E) REFERENCE INTERVAL: Pancreatic Elastase Fecal by Immunoassay Less than 100 ug/g............Severe insufficiency 100 - 199 ug/g................Moderate insufficiency 200 ug/g or greater...........Normal INTERPRETIVE INFORMATION: Pancreatic Elastase Fecal by Immunoassay Reference intervals do not apply for infants less than one month old. Performed By: [facility] [address] [place] [address] Idea Man: Nima Lemus MD, PhD CLIA Number: [id number] Performed By: #### A PEF #### [facility] [address] [place] [address] [employer] Production Supervisor: Jacinto Szymanski MD Giardia/Cryptosp Agon 2022 Cryptosporidium Ag Negative Normal NEG [facility] Comment on above: Result Comment: Cryp tosporidium Antigen Assay Performed By: #### S TLPCR, GCAG #### [facility] [employer] [address] [place] [address] Electronics Production Supervisor: Emmanuel Wan MD [facility] [address] [place] [address] [address] [place], [place] [id number] Electronics Production Supervisor: Inderjit Panda MD #### ACALPF #### [facility] [address] [place] [address] Electronics Production Supervisor: Jacinto Szymanski MD O+P,Giardia Ag Negative Normal NEG [facility] Comment on above: Result Comment: Giar roly Antigen Assay Performed By: #### S TLPCR, GCAG #### [facility] [employer] [facility] [place] [address] Electronics Production Supervisor: Emmanuel Wan MD [address] [place] [id number] Electronics Production Supervisor: Inderjit Panda MD #### ACALPF #### [facility] [address] [place] [address] Electronics Production Supervisor: Jacinto Szymanski MD Stool PCR [facility] 04-14-20 Campylobacter sp PCR NEGATIVE: No Campylobacter spp. (jejuni or coli) DNA Detected Normal CAMNEG [facility] Comment on above: Performed By: #### S TLPCR, GCAG #### [facility] [address] [place] [address] Electronics Production Supervisor: Emmanuel Wan MD [facility] [address] [place] [address] [address]. [place], [place] [id number] Electronics Production Supervisor: Inderjit Panda MD #### ACALPF #### [facility] [address] [place] [address] [employer] Production Supervisor: Jacinto Szymanski MD E coli enterotox PCR NEGATIVE: No Enterotoxigenic E. coli (ETEC) Heat-labile and heat-stable (LT/ST) Normal EECNEG [facility] Comment on above: Result Comment: DNA Detected Performed By: #### S TLPCR, GCAG #### [address] [address] [employer] Production Supervisor: Emmanuel Wan MD [facility] [address] [place] [address] [place] [address] [employer] Production Supervisor: Inderjit Panda MD #### ACALPF #### [facility] [address] [place] [address] Electronics Production Supervisor: Jacinto Szymanski MD Plesiomonas sp PCR Negative [facility] Comment on above: Performed By: #### S TLPCR, GCAG #### [address] [address] [employer] Production Supervisor: Emmanuel Wan MD [facility] [address] [place] [address] [place], [place] [id number] Electronics Production Supervisor: Inderjit Panda MD #### ACALPF #### [facility] [address] [place] [address] Electronics Production Supervisor: Jacinto Szymanski MD Salmonella sp PCR Negative Normal [facility] Comment on above: Performed By: #### S TLPCR, GCAG #### [address] [address] [employer] Production Supervisor: Emmanuel Wan MD [facility] [address] [place] [address] [place] [address] Electronics Production Supervisor: Inderjit Panda MD #### ACALPF #### [facility] [address] [place] [address] [employer] Production Supervisor: Jacinto Szymanski MD Shigatoxin gene PCR Negative Normal [facility] Comment on above: Performed By: #### S TLPCR, GCAG #### [address] [address] Electronics Production Supervisor: Emmanuel Wan MD [facility] [address] [place] [address] [address] [place], [place] 6229383 Electronics Production Supervisor: Inderjit Panda MD #### ACALPF #### [facility] [address] [place] [address] Electronics Production Supervisor: Jacinto Szymanski MD Shigella sp PCR Negative Normal [facility] Comment on above: Performed By: #### S TLPCR, GCAG #### [address] [address] [employer] Production Supervisor: Emmanuel Wan MD [facility] [address] [place] [address] Dr[address] [place], [place] [id number] Electronics Production Supervisor: Inderjit Panda MD #### ACALPF #### [facility] [address] [place], [place] [id number] Electronics Production Supervisor: Jacinto Szymanski MD Vibrio sp PCR NEGATIVE: No Vibrio (V. vulnificus, V, parahaemolyticus and V. cholerae) DNA Normal [facility] Comment on above: Result Comment: Dete cted Performed By: #### S TLPCR, GCAG #### [address] [address] Electronics Production Supervisor: Emmanuel Wan MD [facility] [address] [place] [address] Dr. [place], [place] [phone] Electronics Production Supervisor: Inderjit Panda MD #### ACALPF #### [facility] [address] [place], [place] [id number] Electronics Production Supervisor: Jacinto Szymanski MD Yersinia gene PCR Negative Normal YERNEG [facility] Comment on above: Performed By: #### S TLPCR, GCAG #### [facility] [address] [place] [address] [employer] Production Supervisor: Emmanuel Wan MD [facility] [address] [place] [address] Dr. [place], [place] [phone] Electronics Production Supervisor: Inderjit Panda MD #### ACALPF #### [facility] [address] [place] [address] [employer] Production Supervisor: Jacinto Szymanski MD Celiac Disease Panelon 04-13 IgA [Mass/Vol] 386 mg/dL Normal 70-400 [facility] Comment on above: Performed By: #### C ELP #### [facility] [address] [place], [place] 3495208 Electronics Production Supervisor: Emmanuel Wan MD Giardia/Cryptosp Agon 2022 Source .FECES [facility] Comment on above: Performed By: #### S TLPCR, GCAG #### [facility] [address] [place] [address] Electronics Production Supervisor: Emmanuel Wan MD [facility] [address] [place] [address] Electronics Production Supervisor: Inderjit Panda MD #### ACALPF #### [facility] [address] [place] [address] [employer] Production Supervisor: Jacinto Szymanski MD Specimen Rejectionon 023 Reason for rejection Unable to perform testing: Formed stool is not consistent with suspected Normal [facility] Comment on above: Result Comment: diag nosis. Performed By: #### R EJEC #### [facility] [address] [place] [address] Electronics Production Supervisor: Inderjit Panda MD Source of sample .FECES Normal [facility] Comment on above: Performed By: #### R EJEC #### [facility] [address] [place] [address] [employer] Production Supervisor: Inderjit Panda MD Test ordered [id number] [facility] Comment on above: Performed By: #### R EJEC #### [facility] [address] [place] [address] Electronics Production Supervisor: Inderjit Panda MD Stool PCR [place] 04-13-20 23 Specimen Description .FECES Normal [facility] Comment on above: Performed By: #### S TLPCR, GCAG #### [facility] [address] [place] [address] Electronics Production Supervisor: Emmanuel Wan MD [facility] [address] [place], [place] 6044283 Electronics Production Supervisor: Inderjit Panda MD #### ACALPF #### [facility] [address] [place] [address] Electronics Production Supervisor: Jacinto Szymanski MD CBC with Diffon 04-12-2023 Abs. Basophil 0.07 k/uL Normal 0.00-0.20 [facility] Comment on above: Performed By: #### C DP #### [facility] [address] [place], [place] 9596483 Electronics Production Supervisor: Inderjit Panda MD Abs.Imm.Granulocyte 0.07 k/uL Normal 0.00-0.30 [facility] Comment on above: Performed By: #### C DP #### [facility] [address] [place] [address] Electronics Production Supervisor: Inderjit Panda MD Abs.Neutrophil (Seg) 5.21 k/uL Normal 1.50-8.10 [facility] Comment on above: Performed By: #### C DP #### [facility] [address] [place] [address] Electronics Production Supervisor: Inderjit Panda MD Basophils/100 WBC (Bld) 1 % Normal 0-2 [facility] Comment on above: Performed By: #### C DP #### [facility] [address] [place], [place] 1677083 Electronics Production Supervisor: Inderjit Panda MD Eosinophils (Bld) [#/Vol] 0.07 10*3/uL Normal 0.00-0.44 [facility] Comment on above: Performed By: #### C DP #### [facility] [address] [place] [address] Dr. [place], [place] 4679083 Electronics Production Supervisor: Inderjit Panda MD Eosinophils/100 WBC (Bld) 1 % Normal 1-4 [facility] Comment on above: Performed By: #### C DP #### [facility] [address] [place] [address] Dr. [place], [facility] Electronics Production Supervisor: Inderjit Panda MD Erythrocyte distribution width (RBC) [Ratio] 13.2 % Normal 11.8-14.4 [facility] Comment on above: Performed By: #### C DP #### [address] [place], [facility] [employer] Production Supervisor: Inderjit Panda MD Hematocrit (Bld) [Volume fraction] 48.9 % Normal 40.7-50.3 [facility] Comment on above: Performed By: #### C DP #### [address] [place], [facility] [employer] Production Supervisor: Inderjit Panda MD Hemoglobin (Bld) [Mass/Vol] 16.4 g/dL Normal 13.0-17.0 [facility] Comment on above: Performed By: #### C DP #### [address] [place], [facility] Electronics Production Supervisor: Inderjit Panda MD Immature granulocytes/100 WBC (Bld) 1 % High 0 [facility] Comment on above: Performed By: #### C DP #### [facility] [address] [place] [address] Dr. [place], [facility] Electronics Production Supervisor: Inderjit Panda MD Lymphocytes (Bld) [#/Vol] 3.68 10*3/uL Normal 1.10-3.70 [facility] Comment on above: Performed By: #### C DP #### [address] [place], [facility] Electronics Production Supervisor: Inderjit Panda MD Lymphocytes/100 WBC (Bld) 38 % Normal 24-43 [facility] Comment on above: Performed By: #### C DP #### [facility] [address] [place] [id number] Electronics Production Supervisor: Inderjit Panda MD MCH (RBC) [Entitic mass] 31.0 pg Normal 25.2-33.5 [facility] Comment on above: Performed By: #### C DP #### [facility] [address] [place], [place] [address] Electronics Production Supervisor: Inderjit Panda MD MCHC (RBC) [Mass/Vol] 33.5 g/dL Normal 28.4-34.8 [facility] Comment on above: Performed By: #### C DP #### [address] [place] 6157883 Electronics Production Supervisor: Inderjit Panda MD MCV (RBC) [Entitic vol] 92.4 fL Normal 82.6-102.9 [facility] Comment on above: Performed By: #### C DP #### [address] [place], [facility] [employer] Production Supervisor: Inderjit Panda MD Monocytes (Bld) [#/Vol] 0.58 10*3/uL Normal 0.10-1.20 [facility] Comment on above: Performed By: #### C DP #### [facility] [address] [place] [address] Dr. [place], [facility] Electronics Production Supervisor: Inderjit Panda MD Monocytes/100 WBC (Bld) 6 % Normal 3-12 [facility] Comment on above: Performed By: #### C DP #### [facility] [address] [place], [facility] [employer] Production Supervisor: Inderjit Panda MD Neutrophil (Seg) 53 % Normal 36-65 [facility] Comment on above: Performed By: #### C DP #### [facility] [address] [place], [place] 7690883 Electronics Production Supervisor: Inderjit Panda MD NRBC Automated 0.0 per 100 WBC Normal 0.0 [facility] Comment on above: Performed By: #### C DP #### [facility] [address] [place], [place] 7957883 Electronics Production Supervisor: Inderjit Panda MD Platelet mean volume (Bld) [Entitic vol] 10.2 fL Normal 8.1-13.5 [facility] Comment on above: Performed By: #### C DP #### [address] [place], [place] 3944683 Electronics Production Supervisor: Inderjit Panda MD Platelets (Bld) [#/Vol] 266 10*3/uL Normal 138-453 [facility] Comment on above: Performed By: #### C DP #### [address] [place], [place] 9100[address]83 Electronics Production Supervisor: Inderjit Panda MD RBC (Bld) [#/Vol] 5.29 10*6/uL Normal 4.21-5.77 [facility] Comment on above: Performed By: #### C DP #### [address] [place], [place] 9118583 Electronics Production Supervisor: Inderjit Panda MD WBC (Bld) [#/Vol] 9.7 10*3/uL Normal 3.5-11.3 [facility] Comment on above: Performed By: #### C DP #### [address] [place], [place] 6578183 Electronics Production Supervisor: Inderjit Panda MD XR HIP LT 2 [...] by: SARA BRIGHT Date: 2020-06-14 13:43 Normal [facility] XR KNEE LT 4V or >on 021 [...] LEONOR TARUN Date: 2020-06-14 14:02 Normal [facility] Vital Signs Date Time Vital Sign Value Performing Clinician Haoi yung 07-19-2023 14:45-0500 Diastolic blood pressure 82 mm[Hg] Ramonita Valles MD Work Phone: [facility] 07-19-2023 14:45-0500 Heart rate 77 /min Ramonita Valles MD Work Phone: [facility] 07-19-2023 14:45-0500 Respiratory rate 16 /min Ramonita Valles MD Work Phone: [facility] 07-19-2023 14:45-0500 SaO2% (BldA) [Mass fraction] 94 % Ramonita Valles MD Work Phone: [facility] 07-19-2023 14:45-0500 Systolic blood pressure 113 mm[Hg] Ramonita Valles MD Work Phone: [facility] [employer] [facility] 07-19-2023 14:22-0500 Body temperature 99.3 [degF] Ramonita Valles MD Work Phone: [facility] 07-19-2023 13:00-0500 Body height 175.3 cm Ramonita Valles MD Work Phone: [facility] 07-19-2023 13:00-0500 Body mass index (BMI) [Ratio] 31.6 kg/m2 Ramonita Valles MD Work Phone: [facility] 07-19-2023 13:00-0500 Body weight 97.07 kg Ramonita Valles MD Work Phone: [facility] Encounters Encounter Date Encounter Type Care Provider Facility Start: 07-19-2023 End: 07-19-2023 ambulatory RAMONITA N [facility] Start: 07-19-2023 End: 07-19-2023 Subsequent hospital visit by physician Ramonita Valles MD Work Phone: [facility] Comment on above: Screening for colon cancer; Rectal bleeding Start: 04-13-2023 End: 04-14-[address] [facility] Start: 04-12-2023 End: 04-13-[address] [facility] Start: 06-14-2020 End: 06-14-2020 Patient encounter procedure TY CONLEY Facility: Procedures Date Procedure Procedure Detail Performing Clinician Start: 07-19-2023 Esophagogastroduodenoscopy Ramonita Valles MD Work Phone: Start: 07-19-2023 End: 07-19-2023 Colonoscopy Ramonita Valles MD Work Phone: Plan of Treatment Date Care Activity Detail Author Start: 07-19-2033 Screening for malignant neoplasm of colon [facility] Start: 07-19-2023 End: 07-19-2023 Colon ca scrn not hi rsk ind COLORECTAL CANCER SCREENI NG, NOT HIGH RISK Screening for colon cancer Rectal bleeding 07/19/2023 1:24 PM [facility] Start: 07-19-2023 End: 07-19-2023 Esophagogastroduodenoscopy transoral diagnostic EGD ESOPHAGOGASTRODUODENOSCOPY Screening for colon cancer Rectal bleeding 07/19/2023 1:24 PM [facility] Start: 01-09-2023 Influenza vaccination Flu vaccine (#1) [facility] Start: 2016 Shingles vaccine (1 of 2) Shingles vaccine (1 of 2) [facility] Start: 01-01-2012 Screening for malignant neoplasm of colon [facility] Start: 2006 Lipid panel Lipids [facility] Start: 2001 Diabetes screen Diabetes screen [facility] Start: 1985 DTaP/Tdap/Td vaccine (1 - Tdap) DTaP/Tdap/Td vaccine ( 1 - Tdap) [facility] Start: 1984 Hepatitis C screening Hepatitis C screen [facility] Start: 1981 HIV screening HIV screen [facility] Start: 1978 Depression Screen Depression Screen [facility] Start: 07-03-1967 COVID-19 Vaccine (#1) COVID-19 Vaccine (#1) [facility] Start: 1966 Hepatitis B vaccine (1 of 3 - 3-dose series) Hepatitis B vaccine (1 of 3 - 3-dose series) [facility] Surgical Pathology Surgical Path ology Lab Routine Screening for colon cancer Rectal bleeding Release Upon Ordering for 1 Occurrences starting 07/19/2023 [facility] Comment on above: Release Upon Ordering for 1 Occurrences starting 07/19/2023 Payers Date Payer Category Payer Unknown [id number] [id number] [id number] 1966 Unknown [id number] 2.16.84 [id number] 1966 Unknown [id number] [id number] [id number] 1966 Unknown [id number] [id number] 1966 Unknown [id number] [id number] 1959 Unknown [id number] Social History Date Type Detail Facility Start: 04-12-2023 [facility] Start: 07-19-2023 Alcohol intake Current drinke r of alcohol (finding) [facility] [employer] Start: 09-28-2012 End: 07-19-2023 Alcohol intake [facility] [employer] Start: 09-28-2012 Tobacco use panel [facility] Start: 07-19-2023 Alcohol Comment occasional [facility] [employer] Start: 1965 Sex Assigned At Not on file B ON [facility] Medical Equipment Procedure Code Equipment Code Equipment Origin al Text Equipment Identifier Dates Clip Endoscp 235 cm Resol 360 Order Uom Is Each - [id number] Start: 07-19-2023 Hospital Discharge instructions 07-19-2023 [...] any MRI procedures. documented in this encounter [facility] History of Present illness Narrative 07-06-2023 Theresa [...] the physician's office. documented in this encounter [facility] Evaluation note Note Date & Type Note Facility Evaluation note Diagnosis Screening for colon cancer Special screening for malignant neoplasms, colon Rectal bleeding Hemorrhage of rectum and anus documented in this encounter [facility] Summary Purpose Family History No Family History Records FoundNo Family History Records Found Advance Directives No Advanced Directives Records FoundNo Advanced Directives Records Found Additional Source Comments (unrecognized sect ion and content) No Status Records FoundNo Status Records Found INFORMATION SOURCE (unrecogn ized section and content) DATE CREATED AUTHOR 06/16/2020 [facility] DATE CREATED AUTHOR AUTHOR'S ORGANIZ ATION 07/24/2023 [facility] pital Reason for Visit (unrecogniz ed [...] HIGH RISK EGD ESOPHAGOGASTRODUODENOSCOPY Ramonita Valles MD [address] [place] [address] [facility] [address] [place] [address] Referral ID Status Reason Start Date Expiration Date Visits Re quested Visits Authorized [id number] 1 1 Continuous Active and Recently Administ [...] Care Teams (unrecognized sec tion and content) Tearoom Host Relationship Specialty Start Date End Date Steffany Flores MD [address] [place] [address] PCP - General Family Medicine 04/12/23 FOR [...] BE BASED ON THE PRIMARY CLINICAL RECORDS. [employer] [facility]. provides no warranty or guarantee of the accuracy or completeness of information in this document.
--- NOTE | 2024-02-24 21:30 | ED.DENTAL1 ---
HPI - Dental/Oral General Chief complaint: Dental/Oral Stated complaint: Dental Pain Time Seen by Provider: 02/24/24 21:22 Source: patient Mode of arrival: walk-in History of Present Illness HPI Narrative: 58-year-old male presents to the emergency department for abdominal pain. He states it has been going on for 2 to 3 years became very by the pull of his teeth. He was here a week ago and was prescribed antibiotic which she is still taking. The pain is severe and continuous and involves all of his teeth. Many are already missing. No difficulty breathing or swelling and he has not had a fever. Related Data Home Medications ?Medication ?Instructions ?Recorded ?Confirmed lisinopril 20 1 tab PO DAILY 02/24/24 02/24/24 mg-hydrochlorothiazide 12.5 mg tablet Previous Rx's ?Medication ?Instructions ?Recorded clindamycin HCl 300 mg capsule 300 mg PO Q8H 10 days #30 caps 02/17/24 (Cleocin HCl) diclofenac sodium 75 mg 75 mg PO BID PRN pain #14 tabs 02/17/24 tablet,delayed release acetaminophen 300 mg-codeine 30 mg 1 tab PO Q6H PRN pain #20 tabs 02/24/24 tablet Allergies Allergy/AdvReac Type Severity Reaction Status Date / Time Penicillins AdvReac Severe Unknown Verified 02/17/24 21:30 Review of Systems ROS Narrative A ten point review of systems is negative except as noted above. PFSH PFSH Social History Little interest or pleasure in doing things: not at all Feeling down, depressed, or hopeless: not at all Exam Narrative Exam Narrative: Nurses note and vital signs reviewed and patient is not hypoxic. General: The patient appears well and in no apparent distress. Skin: Warm, dry, no pallor noted. There is no rash noted. Head: Normocephalic, atraumatic Eye: Normal conjunctiva, no drainage Ears, Nose, Mouth, and Throat: oral mucosa is moist. Nares patent. Dental condition is poor with many teeth missing and many eroded down to the gumline. There is no swelling to the floor of his mouth and he is handling his oral secretions well. Cardiovascular: Regular Rate and Rhythm Respiratory: Patient is in no distress, no accessory muscle use, lungs are clear to auscultation, no wheezing, rales or rhonchi GI: Soft and nontender Musculoskeletal: No joint swelling Neurological: Awake and alert Psychiatric: Cooperative Constitutional Vital Signs, click to edit/add: Last Vital Signs Temp 98.4 F 02/24/24 20:14 Pulse 75 02/24/24 20:14 Resp 16 02/24/24 20:14 BP 148/98 H 02/24/24 20:14 Pulse Ox 97 02/24/24 20:14 O2 Del Method Room Air 02/24/24 20:14 Course Vital Signs Vital signs: Vital Signs Temperature 98.4 F 02/24/24 20:14 Pulse Rate 75 02/24/24 20:14 Respiratory Rate 16 02/24/24 20:14 Blood Pressure 148/98 H 02/24/24 20:14 Pulse Oximetry 97 02/24/24 20:14 Oxygen Delivery Method Room Air 02/24/24 20:14 Temperature 98.4 F 02/24/24 20:14 Pulse Rate 75 02/24/24 20:14 Respiratory Rate 16 02/24/24 20:14 Blood Pressure 148/98 H 02/24/24 20:14 Pulse Oximetry 97 02/24/24 20:14 Oxygen Delivery Method Room Air 02/24/24 20:14 MDM - Dental/Oral MDM Narrative Medical decision making narrative: He was provided pain medication, Tylenol 3. He was recommended follow-up with the [facility]. He is already on an antibiotic. Treatment diagnosis and follow-up were discussed with the patient. Differential Diagnosis Differential diagnosis: Likely gingival abscess, dental caries and toothache Discharge Plan Discharge Chief Complaint: Dental/Oral Clinical Impression: Dental caries, Chronic periodontal disease Patient Disposition: Home, Self-Care Time of Disposition Decision: 21:28 Condition: Good Mode of Transportation: Private Vehicle Prescriptions / Home Meds: New acetaminophen-codeine 300-30 mg tablet 1 tab PO Q6H PRN (Reason: pain) Qty: 20 0RF No Action clindamycin HCl [Cleocin HCl] 300 mg capsule 300 mg PO Q8H 10 Days Qty: 30 0RF diclofenac sodium 75 mg tablet,delayed release (DR/EC) 75 mg PO BID PRN (Reason: pain) Qty: 14 0RF lisinopril-hydrochlorothiazide 20-12.5 mg tablet 1 tab PO DAILY Print Language: Slovak Instructions: Periodontal Disease (DC) Additional Instructions: Contact that [facility], in [place] Referrals: [facility] [Primary Care Provider] - 1 week
[2024-02-24] MEDS: ACETAMINOPHEN 300 MG/ 30 MG CODEINE TABLET 1 TAB PO (22:01)
== END 2024-02-24 22:03 | disposition home or self-care (01) ==
PROVIDERS: Emergency Provider Emergency Medicine
DX: K02.9 Dental caries, unspecified (principal); K05.6 Periodontal disease, unspecified
CPT/HCPCS: 99283